=== PATIENT | male | born 1960 ===

== ENCOUNTER 2019-04-06 00:30 | Emergency (ER) | payer BC, OTHER ==
[2019-04-06] MEDS ORDERED: Morphine 4 MG/ML VIAL (1 ml) 4 MG/ML VIAL IV ONE (01:19)
--- NOTE | 2019-04-06 01:20 | ED ---
Abdominal Pain/Male - HPI Summary HPI Summary: A 59 y/o male presents to [facility] with a chief complaint of abdominal pain since 16:30 today. He says that he has had some nausea but no vomiting, SOB, CP, dysuria, hematuria, diarrhea, constipation, fever, or chills. He notes that he was not feeling great yesterday and at a sausage sandwich earlier today. He says that his pain radiates to his back. He says that his abdominal pain is sharp and his last BM was a few hours ago. - History of Current Complaint Chief Complaint: EDAbdPain Stated Complaint: STOMACH/BACK PAINS PER PT Time Seen by Provider: 04/06/19 01:13 Hx Obtained From: Patient Onset/Duration: Sudden Onset, Lasting Hours, Still Present Timing: Constant, Lasting Hours Severity Initially: Severe Severity Currently: Severe Pain Intensity: 8 Pain Scale Used: 0-10 Numeric Location: Diffuse Radiates to: Back Character: Sharp Aggravating Factor(s): Nothing Alleviating Factor(s): Nothing Associated Signs And Symptoms: Positive: Nausea. Negative: Fever, Chest Pain, Urinary Symptoms, Vomiting, Diarrhea - Allergies/Home Medications Allergies/Adverse Reactions: Allergies Allergy/AdvReac Type Severity Reaction Status Date / Time No Known Allergies Allergy Verified 05/21/17 13:00 PMH/Surg Hx/FS Hx/Imm Hx Infectious Disease History: No Infectious Disease History: Denies: Traveled Outside the [place] in Last 30 Days - Social History Alcohol Use: Occasionally Substance Use Type: Reports: None Smoking Status (MU): Former Smoker Review of Systems Negative: Fever, Chills Positive: Abdominal Pain, Nausea, Other - negative: constipation. Negative: Vomiting, Diarrhea Negative: dysuria, hematuria Positive: Myalgia - back pain radiating from abdomen All Other Systems Reviewed And Are Negative: Yes Physical Exam - Summary Physical Exam Summary: Constitutional: Well-developed, Well-nourished, Alert. (-) Distressed Skin: Warm, Dry HENT: Normocephalic; Atraumatic Eyes: Conjunctiva normal Neck: Musculoskeletal ROM normal neck. (-) JVD, (-) Stridor, (-) Tracheal deviation Cardio: Rhythm regular, rate normal, Heart sounds normal; Intact distal pulses; The pedal pulses are 2+ and symmetric. Radial pulses are 2+ and symmetric. (-) Murmur Pulmonary/Chest wall: Effort normal. (-) Respiratory distress, (-) Wheezes, (-) Rales Abd: Soft, (+) LLQ and RLQ TTP, (-) Distension, (-) Guarding, (-) Rebound Musculoskeletal: (-) Edema Lymph: (-) Cervical adenopathy Neuro: Alert, Oriented x3 Psych: Mood and affect Normal Triage Information Reviewed: Yes Vital Signs On Initial Exam: Initial Vitals Temp Pulse Resp BP Pulse Ox 98.9 F 78 20 164/78 93 04/06/19 00:30 04/06/19 00:30 04/06/19 00:30 04/06/19 00:30 04/06/19 00:30 Vital Signs Reviewed: Yes Diagnostics - Vital Signs Vital Signs Temp Pulse Resp BP Pulse Ox 04/06/19 00:30 98.9 F 78 20 164/78 93 - Laboratory Result Diagrams: 04/06/19 01:31 04/06/19 01:31 Lab Statement: Any lab studies that have been ordered have been reviewed, and results considered in the medical decision making process. - CT abdomen/pelvis CT Interpretation Completed By: Radiologist Summary of CT Findings: 1. Colonic diverticulosis. 2. Subpleural nodule in the lingula. 3. Minimal interstitial changes in the left lower lobe. 4. Mildly enlarged prostate gland. 5. Degenerative disc disease at L5-S1. ED physician has reviewed this imaging report. Re-Evaluation - Re-Evaluation First Eval Re-Evaluation Time: 04:22 Abdominal Pain Male Course/Dx - Course Course Of Treatment: A 59 y/o male presents to [facility] with a chief complaint of abdominal pain since 16:30 today. The physical exam revealed LLQ and RLQ TTP. In the ED course the patient was given Zofran IV, Morphine IV, Iohexol IV and sodium chloride IV. Blood work, chemistries and urines obtained and are WNL. Abdomen/pelvis CT impression: 1. Colonic diverticulosis. 2. Subpleural nodule in the lingula. 3. Minimal interstitial changes in the left lower lobe. 4. Mildly enlarged prostate gland. 5. Degenerative disc disease at L5-S1. The patient will be discharged home and follow up with his PCP. The patient is agreeable with this plan. - Diagnoses Provider Diagnoses: Abdominal pain Discharge - Sign-Out/Discharge Documenting (check all that apply): Patient Departure - DC Patient Received Moderate/Deep Sedation with Procedure: No - Discharge Plan Condition: Stable Disposition: HOME Patient Education Materials: Acute Abdominal Pain (ED) Print Language: WELSH Referrals: Martin Frey MD [Primary Care Provider] - Additional Instructions: There is a 4mm lung nodule visible on the CT scan. Follow-up with your primary care doctor to make sure this is unchanged. - Billing Disposition and Condition Condition: STABLE Disposition: Home - Attestation Statements Document Initiated by Scribe: Yes Documenting Scribe: Tristan Coelho Provider For Whom Lalo is Documenting (Include Credential): Stephania Pelaez MD Scribe Attestation: I, Tristan Coelho scribed for Stephania Glover MD on 04/06/19 at 0434. Scribe Documentation Reviewed: Yes Provider Attestation: The documentation as recorded by the Tristan nielsen accurately reflects the service I personally performed and the decisions made by me, Stephania Glover MD Status of Scribe Document: Viewed
[2019-04-06 01:38] LABS: ABS Eosinophils 0.3 10^3/ul (0-0.6); ABS Lymphocytes 1.2 10^3/ul (1.0-4.8); ABS Neutrophils 6.1 10^3/ul (1.5-7.7); Hematocrit 50 % (42-52); Hemoglobin 17.2 g/dL (14.0-18.0); Mean Corpuscular HGB Conc 35 g/dL (31-36); Mean Corpuscular Hemoglobin 31 pg (27-31); Mean Corpuscular Volume 88 fL (80-94); Mean Platelet Volume 7.8 fL (7.4-10.4); Nucleated Red Blood Cells % 0.1; Platelet Count 233 10^3/uL (150-450); Red Blood Count 5.61 10^6 /uL (4.18-5.48); Red Cell Distribution Width 14 % (10-15); White Blood Count 8.7 10^3/uL (3.5-10.8)
[2019-04-06] MEDS ORDERED: Ondansetron INJ* 2 MG/ML VIAL IV ONE (01:42)
[2019-04-06] MEDS ORDERED: NS 0.9% 1000 ML** 1,000 ML IV ONE (01:42)
[2019-04-06] MEDS ORDERED: Ondansetron INJ* 2 MG/ML VIAL ONE (01:44)
[2019-04-06 01:56] LABS: Albumin 4.3 g/dL (3.2-5.2); Albumin/Globulin Ratio 1.3 (1-3); BUN/Creatinine Ratio 17.1 (8-20); C Reactive Protein 12.05 mg/L (<8.01); Calcium 10.6 mg/dL (8.6-10.3); EGFR African American 138.7 (>60); EGFR Non-African American 114.6 (>60); Globulin 3.2 g/dL (2-4); Potassium 3.9 mmol/L (3.5-5.0); Total Bilirubin 0.8 mg/dL (0.2-1.0); Total Protein 7.5 g/dL (6.4-8.9)
[2019-04-06] MEDS ORDERED: Iohexol 300* (CONTRAST) 10 ML SDV IV ONE (02:01)
[2019-04-06 02:51] LABS: Urine Appearance Clear; Urine Bilirubin Negative (Negative); Urine Blood Negative (Negative); Urine Color Yellow; Urine Glucose Negative (Negative); Urine Ketones 1+ (Negative); Urine Nitrite Negative (Negative); Urine Protein Negative (Negative); Urine Specific Gravity 1.047 (1.010-1.030); Urine Urobilinogen Negative (Negative)
[2019-04-06 04:21] VITALS: BP 132/75
== END 2019-04-06 04:41 | disposition home or self-care (01) ==
LOC: ED 00:30
DX: R10.9 Unspecified abdominal pain (principal); Z87.891 Personal history of nicotine dependence; K57.30 Diverticulosis of large intestine without perforation or abscess without bleeding; N40.0 Benign prostatic hyperplasia without lower urinary tract symptoms; R91.8 Other nonspecific abnormal finding of lung field; M51.37 Other intervertebral disc degeneration, lumbosacral region
CPT/HCPCS: 36415; 74177; 80053; 81003; 83605; 83690; 85025; 86140; 96361; 96374; 96375; 99282; J2270; J2405; Q9967